=== PATIENT | male | born 1990 | race Caucasian/White ===

== ENCOUNTER 2018-04-13 20:30 | Emergency (ER) | payer OTHER, SELFPAY ==
[2018-04-13 20:35] VITALS: BP 139/76; PULSE 77; RESP 18; TEMP 36.7; O2SAT 100
[2018-04-13] MEDS: DOXYCYCLINE HYCLATE 100 MG TABLET PO (21:49)
--- NOTE | 2018-04-13 22:04 | PC.NURSE ---
While discharging pt he asked if it is normal for his throat to be itchy as well as nauseated. Dr Garcia aware. no new orders at this time. Will continue to monitor pt.
--- NOTE | 2018-04-13 22:36 | ED.SKABFB ---
HPI - Skin/Abscess/Foreign Bdy General Chief complaint: Skin/Abscess/Foreign Body Stated complaint: GROIN ABSCESS Time Seen by Provider: 04/13/18 21:22 Source: patient Mode of arrival: ambulatory Limitations: no limitations History of Present Illness HPI narrative: 27-year-old male, nonsmoker, otherwise healthy presents with increasing pain, redness and swelling in his left groin, consistent with infection. He denies fever or shaking chills. He has had no nausea or vomiting. He denies history of MRSA. He denies any deep abdominal pain or trouble with bowel movements or urination. There is no spontaneous drainage complaint: abscess/boil Onset (ago): hour(s) Tetanus up to date: yes Location: generalized (L groin) Severity: mild Quality: burning and aching Pain Consistency: constant Associated symptoms: denies other symptoms Treatments prior to arrival: none Related Data Previous Rx's Medication Instructions Recorded doxycycline hyclate 100 mg PO BID #20 tab 04/13/18 sulfamethoxazole-trimethoprim 1 tab PO BID 10 Days #20 tab 04/13/18 [Bactrim DS] Allergies Allergy/AdvReac Type Severity Reaction Status Date / Time No Known Drug Allergies Allergy Verified 04/13/18 20:35 Review of Systems Review of Systems All systems reviewed & are unremarkable except as noted in HPI and below Constitutional Denies chills, Denies fever(s), Denies lethargy and Denies weakness Eyes Denies change in vision, Denies eye discharge, Denies irritation and Denies loss of vision ENT Ears, Nose, Mouth, and Throat: Denies change in voice, Denies neck pain and Denies sore throat Cardiovascular Denies chest pain, Denies irregular heart rhythm, Denies lightheadedness, Denies palpitations, Denies dyspnea, Denies dyspnea on exertion and Denies orthopnea Respiratory Denies cough, Denies dyspnea, Denies dyspnea on exertion and Denies wheezing Gastrointestinal Gastrointestinal: Denies abdominal pain, Denies change in bowel habits, Denies diarrhea, Denies nausea and Denies vomiting Genitourinary Denies hematuria, Denies flank pain, Denies urinary incontinence and Denies urinary urgency Musculoskeletal Denies neck pain Integumentary/Breasts Denies pruritus, Reports erythema, Denies rash, Reports skin pain, Reports skin swelling and Denies wounds Neurologic Denies confusion, Denies loss of vision and Denies weakness Psychiatric Denies anxiety, Denies confusion, Denies depression, Denies homicidal ideation and Denies suicidal ideation Endocrine Denies palpitations Hematologic/Lymphatic Denies easy bruising Allergic/Immunologic Denies wheezing [facility] Social History Smoking Status: Never smoker Exam Narrative Exam Narrative: GEN: AOx3 and in mild distress EYES: Pupils are equal, round, and reactive to light and accommodation. Extraoccular muscles are intact bilaterally. There is no subconjunctival hemorrhage or exudate. CHEST: Lungs are clear to auscultation bilaterally and free of wheezes, rales, or rhonchi. Heart rate is regular rhythm, there are no murmurs, clicks, rubs, or gallops. There is no chest wall tenderness. ABD: Abdomen is soft and nontender. There is no guarding or rebound. Bowel sounds are normal in all 4 quadrants. There is no mass or organomegaly. EXT: Full painless ROM of all extremities with no loss of sensation or strength. SKIN: groin with redness, warmth and mild tenderness. Very small area of induration without fluctuance. one small pustule. Not able to perform I&D Initial Vital Signs Initial Vital Signs: Vital Signs Temperature 98.0 F 04/13/18 20:35 Pulse Rate 77 04/13/18 20:35 Respiratory Rate 18 04/13/18 20:35 Blood Pressure 139/76 04/13/18 20:35 Pulse Oximetry 100 04/13/18 20:35 Course Orders Ordered: Discontinued Medications Doxycycline Hyclate (Vibramycin) 100 mg PO NOW ONE Stop: 04/13/18 21:38 Last Admin: 04/13/18 21:49 Dose: 100 mg Reevaluation(s) Reevaluation #1: patient given first dose of Doxycyline in ED and within 10-15 minutes his throat becomes scratchy and he develops nausea. Observed for another 20-30 minutes without any worsening symptoms. Switched to Bactrim Vital Signs - 8 hr 04/13/18 20:35 04/13/18 22:44 Temperature 98.0 F 98.2 F Pulse Rate 77 64 Respiratory Rate 18 18 Blood Pressure 139/76 102/71 Pulse Oximetry 100 99 Discharge Plan Departure Patient Disposition: Home Clinical Impression: Cellulitis Discharge Date/Time: 04/13/18 22:46 Interventions: ED Discharge Assessment Last Done: 04/13/18 22:44 Instructions: DI for Cellulitis -- Adult Activity Restrictions/Additional Instructions: *You have been diagnosed with [ acute left groin cellulitis ] *What to do: *Take medications as directed *Follow up with your primary care provider in 2-3 days, call for an appointment. Let them know you were seen in the Emergency Department and that we ask that you be seen in follow up *Return to ER if you should have any new, worsening or concerning symptoms Prescriptions: New doxycycline hyclate 100 mg tablet 100 mg PO BID Qty: 20 RF: 0 sulfamethoxazole-trimethoprim [Bactrim DS] 800-160 mg tablet 1 tab PO BID 10 Days Qty: 20 RF: 0
[2018-04-13 22:44] VITALS: BP 102/71; PULSE 64; RESP 18; TEMP 36.8; O2SAT 99
== END 2018-04-13 22:46 | disposition home or self-care (01) ==
PROVIDERS: Emergency Provider Emergency Medicine
DX: L03.314 Cellulitis of groin (principal)
CPT/HCPCS: 99282; 99283